=== PATIENT | female | born 1950 | race Caucasian/White ===

== ENCOUNTER → 2018-04-03 12:13 | Outpatient (CLI) | payer MEDICARE, OTHER, SELFPAY ==
--- NOTE | 2018-04-03 13:34 | PM.TREADMILL ---
Cardiac Stress Test Report Referral & Results Date Patient Seen: 04/03/18 Requesting provider: Danii Means Indication: Chest pain Rest ECG: Unremarkable Procedure Note: Today following both written and verbal informed consent, the patient was exercised according to a standard Charanjit protocol. The patient exercised for a total of 7 min 36 sec achieving a maximum heart rate of 150. Patient's maximum systolic blood pressure was 200. This was an estimated 10.1 MET's. There are no ST-T segment changes identified Occasional PAC and rare PVC including a ventricular couplet Functional aerobic impairment rates-15% on the active scale or 115% of normal Impression: No evidence of ischemia. Excellent exercise capacity Dysrhythmia as above Please note: Actual ECG tracings can be found in the PACS system.
== END ==
PROVIDERS: Family Provider Family Medicine Geriatric Medicine; PCP Family Medicine Geriatric Medicine; Visit Provider Physician Assistant
DX: R07.9 Chest pain, unspecified (principal)
CPT/HCPCS: 93016; 93017; 93018

== ENCOUNTER 2020-03-07 14:14 | Observation (INO) | payer MEDICARE, OTHER, SELFPAY ==
[2020-03-07] VITALS (10 sets, daily range): BP systolic 132–205; BP diastolic 63–93; PULSE 56–76; RESP 16–21; TEMP 35.9–37; O2SAT 95–98; BMI 25.1
--- NOTE | 2020-03-07 14:38 | DI.US.S_ITS ---
PROCEDURE: US ABDOMEN LIMITED INDICATIONS: EPIGASTRIC PAIN RADIATING TO BACK. ?GALLSTONES TECHNIQUE: Real-time focused scanning was performed of the abdomen, with image documentation. COMPARISON: None. FINDINGS: There are gallstones. A couple of nonmobile stones are seen in the gallbladder neck measuring approximately 1.4 cm. No gallbladder wall thickening or pericholecystic fluid. There is positive sonographic Palacios's sign. Visualized liver demonstrates normal size and echotexture. There is a 3.4 x 3.3 x 3.3 cm rim calcified hypoechoic mass in the liver. Common bile duct measures 4.2 mm in diameter. Pancreas is obscured by overlying bowel gas. IMPRESSION: 1. Cholelithiasis. There are a couple of nonmobile stones are seen lodged in the gallbladder neck. No gallbladder wall thickening or pericholecystic fluid collection. The sonographic Palacios sign is positive. If there is clinical concern for acute cholecystitis, HIDA scan may be obtained. 2. A 3.4 x 3.3 x 3.3 cm rim-calcified hypoechoic mass in liver, most likely a cyst. Follow-up ultrasound or CT may be considered if clinically indicated. Dictated by: Manuel Mccollum M.D. on 03/07/2020 at 15:56 Approved by: Manuel Mccollum M.D. on 03/07/2020 at 16:01
--- NOTE | 2020-03-07 14:51 | ED_ITS ---
HPI - Abdominal Pain <VELIA Yoon - Last Filed: 03/07/20 17:59> General Chief Complaint: Abdominal Pain Stated Complaint: severe abd and back pain/nausea/vomiting Time Seen by Provider: 03/07/20 14:28 Source: patient Mode of arrival: Ambulatory Limitations: no limitations History of Present Illness HPI narrative: This is a 69-year-old female, nonsmoker, who has past medical history significant for hypertension, hypothyroidism and gallstones presents to ED with chief complain of right-sided epigastric pain radiating to back started 2 days ago after she had reach at [place] previous day. She reports pain started as mild but became significantly worse after she had dinner last night eating pork. She vomited twice so far and had difficulty sleeping due to pain. Patient reports salt Dr. Polanco (GI specialist) at [place] and had a bedside US done in 2014 and was informed patient has gallstones. Patient denies chest pain, dyspnea, fever, chills or jaundice. Patient reports this is 1st time having this severe pain. Last bowel movements yesterday and had small sips of water at 8:30 a.m. today. PCP-Dr. Jade at [place]. Related Data Home Medications Medication Instructions Recorded Confirmed ALBUTEROL SULFATE (VENTOLIN #0 01/31/11 INHALER) LEVOTHYROXINE SODIUM 88 mcg PO DAILY #0 01/31/11 03/07/20 losartan 25 mg PO DAILY 03/07/20 03/07/20 Allergies Allergy/AdvReac Type Severity Reaction Status Date / Time Penicillins [PENICILLINS] Allergy Unknown Verified 03/08/20 11:49 Sulfa (Sulfonamide Allergy Unknown Verified 03/08/20 11:49 Antibiotics) [SULFA (SULFONAMIDE ANTIBIOTICS)] codeine [CODEINE] AdvReac Intermediate NAUSEA Verified 03/08/20 11:49 Review of Systems <VELIA Yoon - Last Filed: 03/07/20 17:59> Review of Systems Narrative: General: Denies fever, chills, fatigue, malaise, sweats. HEENT: Denies sinus pain, ear pain, sore throat, difficulty swallowing, dizziness. Respiratory: Denies dyspnea, cough, wheezing, hemoptysis, sputum. Cardiovascular: Denies chest pain, palpitations, orthopnea, edema. Gastrointestinal: See HPI : Denies dysuria, frequency, incontinence, hematuria, urinary retention. Musculoskeletal: Denies weakness, joint pain or bony pain. Skin: Denies rash, skin lesions, or other. Neurologic: Denies weakness, headache, numbness, change in speech, confusion, seizures, incoordination. Psychiatric: No concerning psychosocial issues. 12-point review of systems is negative except for those stated above. Patient History <[facility] D[facility] MccallumP - Last Filed: 03/07/20 17:59> Medical History (Updated 03/07/20 @ 20:38 by Jeaneth Fregoso MD) Gallstone Hypertension Hypothyroidism Social History household members: spouse Smoking Status: Never smoker Smoking Status: Never smoker alcohol intake frequency: holidays/special occasions only Substance Use Type: marijuana Exam <[facility] DOLORES MccallumP - Last Filed: 03/07/20 17:59> Narrative Exam Narrative: GEN: Alert, oriented x 3, well appearing and nourished, and in moderate distress from discomfort and holding epigastric region. Head: Normal cephalic, atraumatic. No scalp or temporal tenderness, palpable mass or rash. EYES: Pupils are equal, round, and reactive to light and accommodation. Extraoc ular muscles are intact bilaterally. There is no subconjunctival hemorrhage, exudate and sclera non-icteric. ENT: Hearing grossly intact. Airway patent. Neck: Trachea in midline. No JVD, non-tender without lymphadenopathy. No masses or thyroid megaly. Supple, non-tender and no meningeal signs. CARDIAC: Normal regular rate and rhythm without murmurs, gallops, or rubs. No chest wall tenderness. No peripheral edema, cyanosis or pallor. Capillary refill is less than 2 seconds. RESPIRATORY: Lungs are clear to auscultate bilaterally. No cough, wheezes, rales, or rhonchi. No stridor, respiratory distress, increase work of breathing, or accessary muscle used. ABD: Abdomen soft, nondistended. Epigastric region tender to palpate. No guarding or rebound tenderness to palpate. Bowel sounds are normal in all 4 quadrants. EXT: Full painless ROM of all extremities with no loss of sensation, strength, effusion or edema. SKIN: Warm, dry, normal color for patient. No erythema, lesions or rash over visible areas. BACK: Nontender without deformity or crepitance. No flank tenderness. NEUROLOGICAL: Alert and oriented to place, time and person. Sensation and motor function intact bilaterally. No facial droops, dysphasia. PSYCHIATRIC: Good judgement and reason, without hallucinations, abnormal affect or abnormal behaviors during the examination. Patient is not suicidal. Initial Vital Signs Initial Vital Signs: Vital Signs Temperature 98.0 F 03/07/20 14:26 Pulse Rate 72 03/07/20 14:26 Respiratory Rate 16 03/07/20 14:26 Blood Pressure 205/93 H 03/07/20 14:26 Pulse Oximetry 98 03/07/20 14:26 <Lela Reid DO - Last Filed: 03/09/20 23:06> Initial Vital Signs Initial Vital Signs: Vital Signs Temperature 98.0 F 03/07/20 14:26 Pulse Rate 72 03/07/20 14:26 Respiratory Rate 16 03/07/20 14:26 Blood Pressure 205/93 H 03/07/20 14:26 Pulse Oximetry 98 03/07/20 14:26 Scores <VELIA Yoon - Last Filed: 03/07/20 17:59> GCS Paradise coma scale eye opening: Spontaneous Paradise coma scale verbal response: Orientated Paradise coma scale motor response: Obey commands Paradise coma scale total score: 15 Course <VELIA Yoon - Last Filed: 03/07/20 17:59> Orders Ordered: Discontinued Medications Acetaminophen (Acetaminophen 325 Mg Tablet) 650 mg PO Q6HR PRN PRN Reason: Fever/Mild Pain (1-3) Last Admin: 03/08/20 12:50 Dose: 650 mg Documented by: LOLA Albuterol (Albuterol 1.25 Mg/3 Ml Neb (Pediatric)) 1.25 mg INH RTQ4HR PRN PRN Reason: Shortness Of Breath Or Wheezing Docusate Sodium (Docusate 100 Mg Capsule) 100 mg PO BID PRN PRN Reason: Constipation Fentanyl (Fentanyl 100 Mcg/2 Ml Inj) 0 mcg IV Q5MIN PRN PRN Reason: Pain, Severe (7-10) Haloperidol (Haloperidol 5 Mg/Ml Vial) 1 mg IV Q15MIN PRN PRN Reason: Nausea Hydromorphone HCl (Hydromorphone 0.5 Mg Inj) 0.5 mg IV NOW ONE Stop: 03/07/20 14:47 Last Admin: 03/07/20 14:59 Dose: 0.5 mg Documented by: GHADATONYessica Hydromorphone HCl (Hydromorphone 0.5 Mg Inj) 0.5 mg IV Q4HR PRN PRN Reason: Pain, Moderate (4-6) Last Admin: 03/08/20 08:03 Dose: 0.5 mg Documented by: MEHDI Hydromorphone HCl (Hydromorphone 2 Mg Inj) 0 mg IV Q5MIN PRN PRN Reason: Pain, Mild (1-3) Sodium Chloride (Normal Saline 0.9%) 1,000 mls @ 150 mls/hr IV CONT GIN Last Infusion: 03/07/20 20:50 Dose: 150 mls/hr Documented by: Admin: 03/07/20 15:03 Dose: 150 mls/hr Documented by: JOSHUA Lactated Ringer's (Lactated Ringers) 1,000 mls @ 100 mls/hr IV CONT GIN Last Admin: 03/08/20 06:06 Dose: 100 mls/hr Documented by: Infusion: 03/08/20 05:08 Dose: 100 mls/hr Documented by: Admin: 03/07/20 19:08 Dose: 100 mls/hr Documented by: ALBERTO Ciprofloxacin (Cipro) 400 mg in 200 mls @ 200 mls/hr IV Q12H GIN Last Admin: 03/08/20 08:29 Dose: 200 mls/hr Documented by: Infusion: 03/07/20 22:28 Dose: 200 mls/hr Documented by: Admin: 03/07/20 20:56 Dose: 200 mls/hr Documented by: ALBERTO Lactated Ringer's (Lactated Ringers) 1,000 mls @ 42 mls/hr IV CONT GIN Last Admin: 03/08/20 12:50 Dose: 42 mls/hr Documented by: LOLA Metronidazole (Flagyl) 500 mg in 100 mls @ 100 mls/hr IV NOW ONE Stop: 03/08/20 13:45 Lactated Ringer's (Lactated Ringers) 1,000 mls @ 120 mls/hr IV CONT GIN Last Admin: 03/08/20 14:10 Dose: 120 mls/hr Documented by: Infusion: 03/08/20 14:10 Dose: 120 mls/hr Documented by: Admin: 03/08/20 13:00 Dose: 120 mls/hr Documented by: AGUSTIN Levothyroxine Sodium (Levothyroxine 88 Mcg Tablet) 88 mcg PO 0600 [facility] Last Admin: 03/08/20 05:14 Dose: 88 mcg Documented by: RICHAR Losartan Potassium (Losartan 25 Mg Tablet) 25 mg PO DAILY [facility] Last Admin: 03/08/20 07:48 Dose: 25 mg Documented by: MEHDI Ondansetron HCl (Ondansetron 4 Mg/2 Ml Inj) 4 mg IV NOW ONE Stop: 03/07/20 14:38 Last Admin: 03/07/20 14:57 Dose: 4 mg Documented by: JOSHUA Ondansetron HCl (Ondansetron 4 Mg/2 Ml Inj) 4 mg IV NOW ONE Stop: 03/07/20 16:21 Last Admin: 03/07/20 17:06 Dose: 4 mg Documented by: FRAN Ondansetron HCl (Ondansetron 4 Mg/2 Ml Inj) 4 mg IV Q4HR PRN PRN Reason: Nausea And Vomiting Last Admin: 03/08/20 08:03 Dose: 4 mg Documented by: Admin: 03/08/20 02:52 Dose: 4 mg Documented by: Admin: 03/07/20 19:08 Dose: 4 mg Documented by: ALBERTO Ondansetron HCl (Ondansetron 4 Mg/2 Ml Inj) 4 mg IV NOW PRN PRN Reason: Nausea And Vomiting Oxycodone HCl (Oxycodone Ir 5 Mg Tablet) 5 mg PO PACUNOW PRN PRN Reason: Mild or moderate pain Pantoprazole Sodium (Pantoprazole 40 Mg Vial) 40 mg IV NOW ONE Stop: 03/07/20 14:38 Last Admin: 03/07/20 15:01 Dose: 40 mg Documented by: JOSHUA Pantoprazole Sodium (Pantoprazole 40 Mg Vial) 40 mg IV DAILY [facility] Last Admin: 03/08/20 07:49 Dose: 40 mg Documented by: MEHDI Prochlorperazine (Prochlorperazine 10 Mg/2 Ml Vial) 5 mg IV Q6HR PRN PRN Reason: Nausea Last Admin: 03/08/20 10:08 Dose: 5 mg Documented by: Admin: 03/07/20 21:18 Dose: 5 mg Documented by: ALBERTO Scopolamine (Scopolamine 1 Patch) 1 patch TOP NOW ONE Stop: 03/08/20 12:39 Last Admin: 03/08/20 12:49 Dose: 1 patch Documented by: LOLA Sodium Chloride (Sodium Chloride 0.9% Flush) 10 ml IV PRN PRN PRN Reason: Flush Sodium Chloride (Sodium Chloride 0.9% Flush) 10 ml IV BID GIN Last Admin: 03/08/20 08:29 Dose: Not Given Documented by: OLGA Reevaluation(s) Reevaluation #1: Patient reports nausea and pain improved after the medications. Slightly low in sodium of 130 and chloride of 95. Patient reports she always have slightly low in sodium level in the past. Otherwise unremarkable blood tests. Waiting for ultrasound test results. Time: 15:24 Reevaluation #2: Patient request additional dose of anti nausea. Patient repo rts decreased pain but still has tenderness to palpate in right upper quadrant and epigastric region. Informed patient of ultrasound test results a gallstone of 1.4 cm in gallbladder neck. Time: 16:22 Consultations Consultation #1: Dr. Fregoso paged to consult-cholelithiasis. The patient confirmed that would like immediate surgical intervention for cholelithiasis when given options as pain management and follow-up outpatiently at the clinic. Dr. Fregoso kindly accepted the pateint's care. Time: 16:41 Consultation #2: Dr. Fregoso came into ED to assess the patient at the bedside Time: 17:00 Vital Signs Vital signs: Vital Signs - 8 hr 03/07/20 14:26 03/07/20 15:41 03/07/20 15:42 Temperature 98.0 F Pulse Rate 72 58 L 58 L Respiratory Rate 16 Blood Pressure 205/93 H 137/64 Pulse Oximetry 98 96 03/07/20 15:50 03/07/20 16:00 03/07/20 16:26 Temperature Pulse Rate 56 L 61 62 Respiratory Rate 21 Blood Pressure 137/64 151/65 H Pulse Oximetry 96 95 98 03/07/20 16:30 03/07/20 17:00 Temperature Pulse Rate 60 67 Respiratory Rate Blood Pressure 143/66 H 145/66 H Pulse Oximetry 96 98 <Lela Reid DO - Last Filed: 03/09/20 23:06> Orders Ordered: Discontinued Medications Acetaminophen (Acetaminophen 325 Mg Tablet) 650 mg PO Q6HR PRN PRN Reason: Fever/Mild Pain (1-3) Last Admin: 03/08/20 12:50 Dose: 650 mg Documented by: LOLA Albuterol (Albuterol 1.25 Mg/3 Ml Neb (Pediatric)) 1.25 mg INH RTQ4HR PRN PRN Reason: Shortness Of Breath Or Wheezing Docusate Sodium (Docusate 100 Mg Capsule) 100 mg PO BID PRN PRN Reason: Constipation Fentanyl (Fentanyl 100 Mcg/2 Ml Inj) 0 mcg IV Q5MIN PRN PRN Reason: Pain, Severe (7-10) Haloperidol (Haloperidol 5 Mg/Ml Vial) 1 mg IV Q15MIN PRN PRN Reason: Nausea Hydromorphone HCl (Hydromorphone 0.5 Mg Inj) 0.5 mg IV NOW ONE Stop: 03/07/20 14:47 Last Admin: 03/07/20 14:59 Dose: 0.5 mg Documented by: RSTONE Hydromorphone HCl (Hydromorphone 0.5 Mg Inj) 0.5 mg IV Q4HR PRN PRN Reason: Pain, Moderate (4-6) Last Admin: 03/08/20 08:03 Dose: 0.5 mg Documented by: CPETRIC Hydromorphone HCl (Hydromorphone 2 Mg Inj) 0 mg IV Q5MIN PRN PRN Reason: Pain, Mild (1-3) Sodium Chloride (Normal Saline 0.9%) 1,000 mls @ 150 mls/hr IV CONT GIN Last Infusion: 03/07/20 20:50 Dose: 150 mls/hr Documented by: Admin: 03/07/20 15:03 Dose: 150 mls/hr Documented by: RSTONE Lactated Ringer's (Lactated Ringers) 1,000 mls @ 100 mls/hr IV CONT GIN Last Admin: 03/08/20 06:06 Dose: 100 mls/hr Documented by: Infusion: 03/08/20 05:08 Dose: 100 mls/hr Documented by: Admin: 03/07/20 19:08 Dose: 100 mls/hr Documented by: ALBERTO Ciprofloxacin (Cipro) 400 mg in 200 mls @ 200 mls/hr IV Q12H [facility] Last Admin: 03/08/20 08:29 Dose: 200 mls/hr Documented by: Infusion: 03/07/20 22:28 Dose: 200 mls/hr Documented by: Admin: 03/07/20 20:56 Dose: 200 mls/hr Documented by: ALBERTO Lactated Ringer's (Lactated Ringers) 1,000 mls @ 42 mls/hr IV CONT [facility] Last Admin: 03/08/20 12:50 Dose: 42 mls/hr Documented by: LOLA Metronidazole (Flagyl) 500 mg in 100 mls @ 100 mls/hr IV NOW ONE Stop: 03/08/20 13:45 Lactated Ringer's (Lactated Ringers) 1,000 mls @ 120 mls/hr IV CONT [facility] Last Admin: 03/08/20 14:10 Dose: 120 mls/hr Documented by: Infusion: 03/08/20 14:10 Dose: 120 mls/hr Documented by: Admin: 03/08/20 13:00 Dose: 120 mls/hr Documented by: AGUSTIN Levothyroxine Sodium (Levothyroxine 88 Mcg Tablet) 88 mcg PO 0600 [facility] Last Admin: 03/08/20 05:14 Dose: 88 mcg Documented by: RICHAR Losartan Potassium (Losartan 25 Mg Tablet) 25 mg PO DAILY [facility] Last Admin: 03/08/20 07:48 Dose: 25 mg Documented by: MEHDI Ondansetron HCl (Ondansetron 4 Mg/2 Ml Inj) 4 mg IV NOW ONE Stop: 03/07/20 14:38 Last Admin: 03/07/20 14:57 Dose: 4 mg Documented by: JOSHUA Ondansetron HCl (Ondansetron 4 Mg/2 Ml Inj) 4 mg IV NOW ONE Stop: 03/07/20 16:21 Last Admin: 03/07/20 17:06 Dose: 4 mg Documented by: FRAN Ondansetron HCl (Ondansetron 4 Mg/2 Ml Inj) 4 mg IV Q4HR PRN PRN Reason: Nausea And Vomiting Last Admin: 03/08/20 08:03 Dose: 4 mg Documented by: Admin: 03/08/20 02:52 Dose: 4 mg Documented by: Admin: 03/07/20 19:08 Dose: 4 mg Documented by: ALBERTO Ondansetron HCl (Ondansetron 4 Mg/2 Ml Inj) 4 mg IV NOW PRN PRN Reason: Nausea And Vomiting Oxycodone HCl (Oxycodone Ir 5 Mg Tablet) 5 mg PO PACUNOW PRN PRN Reason: Mild or moderate pain Pantoprazole Sodium (Pantoprazole 40 Mg Vial) 40 mg IV NOW ONE Stop: 03/07/20 14:38 Last Admin: 03/07/20 15:01 Dose: 40 mg Documented by: JOSHUA Pantoprazole Sodium (Pantoprazole 40 Mg Vial) 40 mg IV DAILY [facility] Last Admin: 03/08/20 07:49 Dose: 40 mg Documented by: MEHDI Prochlorperazine (Prochlorperazine 10 Mg/2 Ml Vial) 5 mg IV Q6HR PRN PRN Reason: Nausea Last Admin: 03/08/20 10:08 Dose: 5 mg Documented by: Admin: 03/07/20 21:18 Dose: 5 mg Documented by: ALBERTO Scopolamine (Scopolamine 1 Patch) 1 patch TOP NOW ONE Stop: 03/08/20 12:39 Last Admin: 03/08/20 12:49 Dose: 1 patch Documented by: LOLA Sodium Chloride (Sodium Chloride 0.9% Flush) 10 ml IV PRN PRN PRN Reason: Flush Sodium Chloride (Sodium Chloride 0.9% Flush) 10 ml IV BID [facility] Last Admin: 03/08/20 08:29 Dose: Not Given Documented by: OLGA Vital Signs Vital signs: Vital Signs - 8 hr 03/07/20 14:26 03/07/20 15:41 03/07/20 15:42 Temperature 98.0 F Pulse Rate 72 58 L 58 L Respiratory Rate 16 Blood Pressure 205/93 H 137/64 Pulse Oximetry 98 96 03/07/20 15:50 03/07/20 16:00 03/07/20 16:26 Temperature Pulse Rate 56 L 61 62 Respiratory Rate 21 Blood Pressure 137/64 151/65 H Pulse Oximetry 96 95 98 03/07/20 16:30 03/07/20 17:00 Temperature Pulse Rate 60 67 Respiratory Rate Blood Pressure 143/66 H 145/66 H Pulse Oximetry 96 98 MDM - Abdominal Pain <[facility] - Last Filed: 03/07/20 17:59> Differential Diagnosis Differential diagnosis: Likely abdominal pain and other (Cholecystitis, cholelithiasis, pancreas) Medical Records Attestation: I reviewed the patient's medical records. Lab Data Attestation: I reviewed the patient's lab results. Result diagrams: 03/08/20 13:48 03/08/20 05:00 Labs: Lab Results 03/07/20 03/07/20 03/07/20 Range/Units 14:46 14:46 14:46 WBC 10.2 (4.5-11.0) X10^3/uL RBC 4.18 (4.0-5.2) X10^6/uL Hgb 13.3 (12.0-16.0) g/dL Hct 38.5 (36-46) % MCV 92.2 (80-100) fL MCH 31.7 (26-34) PG MCHC 34.4 (30-36) % RDW 12.8 (11.6-14.8) % Plt Count 303 (150-400) X10^3/uL Neut % (Auto) 72.2 (50-75) % Lymph % (Auto) 18.4 L (25-40) % Tillman % (Auto) 8.7 (3-14) % Eos % (Auto) 0.3 L (2-4) % Baso % (Auto) 0.4 (0-2) % Neut # (Auto) 7400 H (9716-6581) /uL Lymph # (Auto) 1900 (8201-5840) /uL Tillman # (Auto) 900 (0-900) /uL Eos # (Auto) 0 (0-450) /uL Baso # (Auto) 0 (0-100) /uL PT 11.5 (10.1-12.7) SECONDS INR 1.0 (0.9-1.3) APTT 28 (26.4-36.2) SECONDS Sodium 130 L (137-145) mmol/L Potassium 3.6 (3.4-5.1) mmol/L Chloride 95 L (98-107) mmol/L Carbon Dioxide 29 (22-32) mmol/L BUN 8 (7-17) mg/dL Creatinine 0.41 L (0.52-1.04) mg/dL Estimated GFR > 60.0 (>60) mL/min BUN/Creatinine Ratio 19.5 (6-22) Glucose 106 (80-110) mg/dL Calcium 10.0 (8.4-10.2) mg/dL Total Bilirubin 1.2 (0.2-1.3) mg/dL AST 29 (14-36) IU/L ALT 22 (<35) IU/L Alkaline Phosphatase 98 (38-126) U/L Total Creatine Kinase (30-135) U/L CK-MB (CK-2) CK-MB (CK-2) Rel Index Troponin I (0.01-0.034) ng/mL Total Protein 7.7 (6.3-8.2) g/dL Albumin 4.5 (3.5-5.0) g/dL Globulin 3.2 (1.7-4.1) g/dL Albumin/Globulin Ratio 1.4 (1.0-2.8) Lipase 46 (23-300) U/L COVID-19 PCR (Negative) 03/07/20 03/07/20 Range/Units 14:46 17:00 WBC (4.5-11.0) X10^3/uL RBC (4.0-5.2) X10^6/uL Hgb (12.0-16.0) g/dL Hct (36-46) % MCV (80-100) fL MCH (26-34) PG MCHC (30-36) % RDW (11.6-14.8) % Plt Count (150-400) X10^3/uL Neut % (Auto) (50-75) % Lymph % (Auto) (25-40) % Tillman % (Auto) (3-14) % Eos % (Auto) (2-4) % Baso % (Auto) (0-2) % Neut # (Auto) (4622-1508) /uL Lymph # (Auto) (6091-4668) /uL Tillman # (Auto) (0-900) /uL Eos # (Auto) (0-450) /uL Baso # (Auto) (0-100) /uL PT (10.1-12.7) SECONDS INR (0.9-1.3) APTT (26.4-36.2) SECONDS Sodium (137-145) mmol/L Potassium (3.4-5.1) mmol/L Chloride (98-107) mmol/L Carbon Dioxide (22-32) mmol/L BUN (7-17) mg/dL Creatinine (0.52-1.04) mg/dL Estimated GFR (>60) mL/min BUN/Creatinine Ratio (6-22) Glucose (80-110) mg/dL Calcium (8.4-10.2) mg/dL Total Bilirubin (0.2-1.3) mg/dL AST (14-36) IU/L ALT (<35) IU/L Alkaline Phosphatase (38-126) U/L Total Creatine Kinase 52 (30-135) U/L CK-MB (CK-2) TNP CK-MB (CK-2) Rel Index TNP Troponin I < 0.012 (0.01-0.034) ng/mL Total Protein (6.3-8.2) g/dL Albumin (3.5-5.0) g/dL Globulin (1.7-4.1) g/dL Albumin/Globulin Ratio (1.0-2.8) Lipase (23-300) U/L COVID-19 PCR Negative (Negative) Imaging Data US - abdomen: Radiologist's Impression: [address] [id number] ReportSigned Patient: Unique Carreon JMR#: [id number]: [id number]:[id number]/Sex: 69 / FDate of Service: 03/07/20Loc: EDAccession Number: [id number] Procedure: US abdomen limited Ordering Provider: [facility] Mccallum PROCEDURE: US ABDOMEN LIMITED INDICATIONS: EPIGASTRIC PAIN RADIATING TO BACK. ?GALLSTONES TECHNIQUE: Real-time focused scanning was performed of the abdomen, with image documentation. COMPARISON: None. FINDINGS: There are gallstones. A couple of nonmobile stones are seen in the gallbladder neck measuring approximately 1.4 cm. No gallbladder wall thickening or pericholecystic fluid. There is positive sonographic Palacios's sign. Visualized liver demonstrates normal size and echotexture. There is a 3.4 x 3.3 x 3.3 cm rim calcified hypoechoic mass in the liver. Common bile duct measures 4.2 mm in diameter. Pancreas is obscured by overlying bowel gas. IMPRESSION: 1. Cholelithiasis. There are a couple of nonmobile stones are seen lodged in the gallbladder neck. No gallbladder wall thickening or pericholecystic fluid collection. The sonographic Palacios sign is positive. If there is clinical concern for acute cholecystitis, HIDA scan may be obtained. 2. A 3.4 x 3.3 x 3.3 cm rim-calcified hypoechoic mass in liver, most likely a cyst. Follow-up ultrasound or CT may be considered if clinically indicated. Dictated by: Manuel Mccollum M.D. on 03/07/2020 at 15:56 Approved by: Manuel Mccollum M.D. on 03/07/2020 at 16:01 ECG Data Attestation: I personally reviewed and interpreted this ECG as follows: Prior ECG tracings: not available for review Interpretation: Sinus bradycardia rate at 57. Normal axis. NE interval 182, QRS duration 100, QT/QTC 468/[address] changes MDM Narrative Medical decision making narrative: This is a 69 year female presents to ED with epigastric and right upper quadrant pain radiating to back for last 2-3 days with nausea and vomiting since last night after eating rich food 3 days ago. Reports has known gallstone in the past but pain has not been this severe. CBC shows no leukocytosis with white count of 10.2. Stable H&H. Normal coag. Normal liver function test of AST of 29, ALT of 22, alk phosphatase 98. Normal lipase of 46. Chemistry test shows mild sodium level of 130 with chloride of 95. Patient reports her sodium levels always lower than normal. US of abdomen indicates a couple of nonmobile stones seen in the gallbladder neck measuring approximately 1.4 cm without wall thickening or pericholecystic fluid. There was positive sonographic Palacios's sign. Common bile duct measures 4.2 mm in diameter. There is a 3.4 x 3.3 x 3.3 cm rim calcified hypoechoic mass in the liver most likely a cyst and recommending ultrasound or CT if clinically indicated. EKG shows sinus bradycardia rate at [address] changes. Cardiac enzymes were negative. Patient was medicated with 1 L of normal saline bolus, Dilaudid 0.5 mg, and 2 doses of Zofran 4 mg for symptoms which moderately improved her symptoms. Dr. Obrien consulted and she kindly accepted the patient's care for surgical intervention as patient's request. Covid test is negative. <Lela Reid, DO - Last Filed: 03/09/20 23:06> Lab Data Labs: Lab Results 03/07/20 03/07/20 03/07/20 Range/Units 14:46 14:46 14:46 WBC 10.2 (4.5-11.0) X10^3/uL RBC 4.18 (4.0-5.2) X10^6/uL Hgb 13.3 (12.0-16.0) g/dL Hct 38.5 (36-46) % MCV 92.2 (80-100) fL MCH 31.7 (26-34) PG MCHC 34.4 (30-36) % RDW 12.8 (11.6-14.8) % Plt Count 303 (150-400) X10^3/uL Neut % (Auto) 72.2 (50-75) % Lymph % (Auto) 18.4 L (25-40) % Tillman % (Auto) 8.7 (3-14) % Eos % (Auto) 0.3 L (2-4) % Baso % (Auto) 0.4 (0-2) % Neut # (Auto) 7400 H (7968-3752) /uL Lymph # (Auto) 1900 (5954-5157) /uL Tillman # (Auto) 900 (0-900) /uL Eos # (Auto) 0 (0-450) /uL Baso # (Auto) 0 (0-100) /uL PT 11.5 (10.1-12.7) SECONDS INR 1.0 (0.9-1.3) APTT 28 (26.4-36.2) SECONDS Sodium 130 L (137-145) mmol/L Potassium 3.6 (3.4-5.1) mmol/L Chloride 95 L (98-107) mmol/L Carbon Dioxide 29 (22-32) mmol/L BUN 8 (7-17) mg/dL Creatinine 0.41 L (0.52-1.04) mg/dL Estimated GFR > 60.0 (>60) mL/min BUN/Creatinine Ratio 19.5 (6-22) Glucose 106 (80-110) mg/dL Calcium 10.0 (8.4-10.2) mg/dL Total Bilirubin 1.2 (0.2-1.3) mg/dL AST 29 (14-36) IU/L ALT 22 (<35) IU/L Alkaline Phosphatase 98 (38-126) U/L Total Creatine Kinase (30-135) U/L CK-MB (CK-2) CK-MB (CK-2) Rel Index Troponin I (0.01-0.034) ng/mL Total Protein 7.7 (6.3-8.2) g/dL Albumin 4.5 (3.5-5.0) g/dL Globulin 3.2 (1.7-4.1) g/dL Albumin/Globulin Ratio 1.4 (1.0-2.8) Lipase 46 (23-300) U/L COVID-19 PCR (Negative) 03/07/20 03/07/20 Range/Units 14:46 17:00 WBC (4.5-11.0) X10^3/uL RBC (4.0-5.2) X10^6/uL Hgb (12.0-16.0) g/dL Hct (36-46) % MCV (80-100) fL MCH (26-34) PG MCHC (30-36) % RDW (11.6-14.8) % Plt Count (150-400) X10^3/uL Neut % (Auto) (50-75) % Lymph % (Auto) (25-40) % Tillman % (Auto) (3-14) % Eos % (Auto) (2-4) % Baso % (Auto) (0-2) % Neut # (Auto) (5797-4549) /uL Lymph # (Auto) (0798-6144) /uL Tillman # (Auto) (0-900) /uL Eos # (Auto) (0-450) /uL Baso # (Auto) (0-100) /uL PT (10.1-12.7) SECONDS INR (0.9-1.3) APTT (26.4-36.2) SECONDS Sodium (137-145) mmol/L Potassium (3.4-5.1) mmol/L Chloride (98-107) mmol/L Carbon Dioxide (22-32) mmol/L BUN (7-17) mg/dL Creatinine (0.52-1.04) mg/dL Estimated GFR (>60) mL/min BUN/Creatinine Ratio (6-22) Glucose (80-110) mg/dL Calcium (8.4-10.2) mg/dL Total Bilirubin (0.2-1.3) mg/dL AST (14-36) IU/L ALT (<35) IU/L Alkaline Phosphatase (38-126) U/L Total Creatine Kinase 52 (30-135) U/L CK-MB (CK-2) TNP CK-MB (CK-2) Rel Index TNP Troponin I < 0.012 (0.01-0.034) ng/mL Total Protein (6.3-8.2) g/dL Albumin (3.5-5.0) g/dL Globulin (1.7-4.1) g/dL Albumin/Globulin Ratio (1.0-2.8) Lipase (23-300) U/L COVID-19 PCR Negative (Negative) Discharge Plan Departure Patient Disposition: Admitted as Observation Clinical Impression: Cholelithiasis Qualifiers: Cholelithiasis location: gallbladder Cholecystitis presence: without cholecystitis Biliary obstruction: without biliary obstruction Qualified Code(s): K80.20 - Calculus of gallbladder without cholecystitis without obstruction Admit Date/Time: 03/07/20 17:10 Admit Provider: Jeaneth Fregoso <Lela Reid DO - Last Filed: 03/09/20 23:06> Cosign ED Attending Cosignature Attestation: I was immediately available in the department for consultation. Documentation has been reviewed. I agree with assessment and plan.
[2020-03-07 14:52] LABS: Add Manual Diff / Slide Review NO; Basophils Absolute Auto 0 /uL (0-100); Basophils Percent Auto 0.4 % (0-2); Eosinophils Absolute Auto 0 /uL (0-450); Eosinophils Percent Auto 0.3 % (2-4); Hematocrit 38.5 % (36-46); Hemoglobin 13.3 g/dL (12.0-16.0); Lymphocytes Absolute Auto 1900 /uL (1100-4500); Lymphocytes Percent Auto 18.4 % (25-40); Mean Corpuscular HGB Conc 34.4 % (30-36); Mean Corpuscular Hemoglobin 31.7 PG (26-34); Mean Corpuscular Volume 92.2 fL (80-100); Monocytes Absolute Auto 900 /uL (0-900); Monocytes Percent Auto 8.7 % (3-14); Neutrophils Absolute Auto 7400 /uL (1500-7000); Neutrophils Percent Auto 72.2 % (50-75); Platelet Count 303 X10^3/uL (150-400); Red Blood Cell Count 4.18 X10^6/uL (4.0-5.2); Red Cell Distribution Width 12.8 % (11.6-14.8); White Blood Cell Count 10.2 X10^3/uL (4.5-11.0)
[2020-03-07] MEDS: ONDANSETRON 4 MG/2 ML INJ IV ×3 (14:57→19:08)
[2020-03-07] MEDS: HYDROMORPHONE 0.5 MG INJ IV (14:59)
[2020-03-07] MEDS: PANTOPRAZOLE 40 MG VIAL IV (15:01)
[2020-03-07 15:03] LABS: Prothrombin Time 11.5 SECONDS (10.1-12.7)
[2020-03-07] MEDS: SODIUM CHLORIDE 0.9% 1,000 ML 150 ML IV (15:03)
[2020-03-07 15:06] LABS: PTT Partial Thromboplastin Tim 28 SECONDS (26.4-36.2)
[2020-03-07 15:10] LABS: Alanine Aminotransferase 22 IU/L (<35); Albumin 4.5 g/dL (3.5-5.0); Albumin Globulin Ratio 1.4 (1.0-2.8); Alkaline Phosphatase 98 U/L (38-126); Aspartate Aminotransferase 29 IU/L (14-36); BUN Creatinine Ratio 19.5 (6-22); Bilirubin Total 1.2 mg/dL (0.2-1.3); Blood Urea Nitrogen 8 mg/dL (7-17); Carbon Dioxide 29 mmol/L (22-32); Chloride 95 mmol/L (98-107); Creatine Kinase 52 U/L (30-135); Estimated Glomerular Filt Rate > 60.0 mL/min (>60); Globulin 3.2 g/dL (1.7-4.1); Glucose 106 mg/dL (80-110); HEMOLYSIS < 15 (0-50); Lipase 46 U/L (23-300); Potassium 3.6 mmol/L (3.4-5.1); Sodium 130 mmol/L (137-145); Total Protein 7.7 g/dL (6.3-8.2)
[2020-03-07 15:21] LABS: Troponin I < 0.012 ng/mL (0.01-0.034)
[2020-03-07 17:53] LABS: COVID19 -Nasal RAPID Negative (Negative)
--- NOTE | 2020-03-07 18:01 | P.HP_ITS ---
History of Present Illness History of Present Illness Date Patient Seen: 03/07/20 Time Patient Seen: 16:30 Chief complaint: severe abd and back pain/nausea/vomiting Narrative: This is a 69 yo woman with history of hypothyroid, hypertension, and history of phannensteil for ectopic . She comes in with two days of RUQ pain and nausea. She first noticed the pain on Tuesday. It began as dull ache across her mid abdomen/periumbilical area. It became focal in the RUQ and radiates to the back. She vomited last night after eating dinner. She denies fevers/chills, jaundice, chest pain, dyspnea. She says she knew she had gall stones from an x-ray or US she had done in the past, but never had symptoms before this. RUQ US in the ER shows gall stones with obstruction of gall bladder outlet. No dilated ducts, wall thickening, or pericholecystic fluid. WBC is normal. LFT's are normal. ROS: General: Denies fever, chills, fatigue, malaise, sweats. HEENT: Denies sinus pain, ear pain, sore throat, difficulty swallowing, dizziness. Respiratory: Denies dyspnea, cough, wheezing, hemoptysis, sputum. Cardiovascular: Denies chest pain, palpitations, orthopnea, edema. Gastrointestinal: See HPI : Denies dysuria, frequency, incontinence, hematuria, urinary retention. Musculoskeletal: Denies weakness, joint pain or bone pain. Skin: Denies rash, skin lesions, or other. Neurologic: Denies weakness, headache, numbness, change in speech, confusion, s eizures, incoordination. Psychiatric: No concerning psychosocial issues. 12-point review of systems is negative except for those stated above. PE: GENERAL: Alert, comfortable. Appears stated age. Answers questions promptly and appropriately. Vital signs noted. HENT: Normocephalic, atraumatic. Hearing intact. Oral mucosa is pink and moist. EYES: Conjunctiva pink, sclera white, no periorbital swelling. CARDIOVASCULAR: Regular rate. No pedal edema. RESPIRATORY: Non-tachypneic, breathing comfortably on room air. GASTROINTESTINAL: Abdomen soft and non-distended; mild TTP in RUQ (pt reports sh e just had pain meds) GENITALURINARY: No flank tenderness. MUSCULOSKELETAL: Equal tone and mass bilaterally. SKIN: Warm, dry, soft, appropriate color for ethnicity. No other lesions, rashes, or wounds. NEURO: Alert and Oriented X 3. No gross sensory deficits, or cognitive issues. PSYCH: Appropriate mood and affect, normal intellect Patient History Medical History Gallstone Hypertension Hypothyroidism Family & Social History Safety & Behavioral: Feels Safe in Current Yes Environment Been Physically Hurt or No Threatened By a Person Tobacco & Substance use: Smoking Status Never smoker alcohol intake frequency holiday/special occasion Substance Use Type marijuana Meds Home Medications and Allergies Home Medications Medication Instructions Recorded Confirmed Type ALBUTEROL SULFATE (VENTOLIN #0 01/31/11 History INHALER) LEVOTHYROXINE SODIUM 88 mcg PO DAILY #0 01/31/11 03/07/20 History losartan 25 mg PO DAILY 03/07/20 03/07/20 History Allergies Allergy/AdvReac Type Severity Reaction Status Date / Time Penicillins [PENICILLINS] Allergy Unknown Unverified 03/07/20 14:27 Sulfa (Sulfonamide Allergy Unknown Unverified 03/07/20 14:27 Antibiotics) [SULFA (SULFONAMIDE ANTIBIOTICS)] codeine [CODEINE] AdvReac Intermediate NAUSEA Unverified 03/07/20 14:27 Exam Vital Signs (past 8 hours): - 03/07/20 14:26 03/07/20 15:41 03/07/20 15:42 Temperature 98.0 F Pulse Rate 72 58 L 58 L Respiratory Rate 16 Blood Pressure 205/93 H 137/64 Pulse Oximetry 98 96 03/07/20 15:50 03/07/20 16:00 03/07/20 16:26 Temperature Pulse Rate 56 L 61 62 Respiratory Rate 21 Blood Pressure 137/64 151/65 H Pulse Oximetry 96 95 98 03/07/20 16:30 03/07/20 17:00 Temperature Pulse Rate 60 67 Respiratory Rate Blood Pressure 143/66 H 145/66 H Pulse Oximetry 96 98 Oxygen Delivery Method Room Air Objective Imaging US - abdomen: Radiologist's impression: [address] [id number] ReportSigned Patient: Unique Carreon SYD#: [id number]: 1950cct:[id number]/Sex: 69 / FDate of Service: 03/07/20Loc: EDAccession Number: [id number] Procedure: US abdomen limited Ordering Provider: Mt Mccallum PROCEDURE: US ABDOMEN LIMITED INDICATIONS: EPIGASTRIC PAIN RADIATING TO BACK. ?GALLSTONES TECHNIQUE: Real-time focused scanning was performed of the abdomen, with image documentation. COMPARISON: None. FINDINGS: There are gallstones. A couple of nonmobile stones are seen in the gallbladder neck measuring approximately 1.4 cm. No gallbladder wall thickening or pericholecystic fluid. There is positive sonographic Palacios's sign. Visualized liver demonstrates normal size and echotexture. There is a 3.4 x 3.3 x 3.3 cm rim calcified hypoechoic mass in the liver. Common bile duct measures 4.2 mm in diameter. Pancreas is obscured by overlying bowel gas. IMPRESSION: 1. Cholelithiasis. There are a couple of nonmobile stones are seen lodged in the gallbladder neck. No gallbladder wall thickening or pericholecystic fluid collection. The sonographic Palacios sign is positive. If there is clinical concern for acute cholecystitis, HIDA scan may be obtained. 2. A 3.4 x 3.3 x 3.3 cm rim-calcified hypoechoic mass in liver, most likely a cyst. Follow-up ultrasound or CT may be considered if clinically indicated. Dictated by: Manuel Mccollum M.D. on 03/07/2020 at 15:56 Approved by: Manuel Mccollum M.D. on 03/07/2020 at 16:01 Labs Result Diagrams: 03/07/20 14:46 03/07/20 14:46 Labs: Laboratory Results - last 24 hr 03/07/20 03/07/20 03/07/20 14:46 14:46 14:46 WBC 10.2 RBC 4.18 Hgb 13.3 Hct 38.5 MCV 92.2 MCH 31.7 MCHC 34.4 RDW 12.8 Plt Count 303 Neut % (Auto) 72.2 Lymph % (Auto) 18.4 L [place] % (Auto) 8.7 Eos % (Auto) 0.3 L Baso % (Auto) 0.4 Neut # (Auto) 7400 H Lymph # (Auto) 1900 [place] # (Auto) 900 Eos # (Auto) 0 Baso # (Auto) 0 PT 11.5 INR 1.0 APTT 28 Sodium 130 L Potassium 3.6 Chloride 95 L Carbon Dioxide 29 BUN 8 Creatinine 0.41 L Estimated GFR > 60.0 BUN/Creatinine Ratio 19.5 Glucose 106 Calcium 10.0 Total Bilirubin 1.2 AST 29 ALT 22 Alkaline Phosphatase 98 Total Creatine Kinase CK-MB (CK-2) CK-MB (CK-2) Rel Index Troponin I Total Protein 7.7 Albumin 4.5 Globulin 3.2 Albumin/Globulin Ratio 1.4 Lipase 46 COVID-19 PCR 03/07/20 03/07/20 14:46 17:00 WBC RBC Hgb Hct MCV MCH MCHC RDW Plt Count Neut % (Auto) Lymph % (Auto) [place] % (Auto) Eos % (Auto) Baso % (Auto) Neut # (Auto) Lymph # (Auto) [place] # (Auto) Eos # (Auto) Baso # (Auto) PT INR APTT Sodium Potassium Chloride Carbon Dioxide BUN Creatinine Estimated GFR BUN/Creatinine Ratio Glucose Calcium Total Bilirubin AST ALT Alkaline Phosphatase Total Creatine Kinase 52 CK-MB (CK-2) TNP CK-MB (CK-2) Rel Index TNP Troponin I < 0.012 Total Protein Albumin Globulin Albumin/Globulin Ratio Lipase COVID-19 PCR Negative Assessment & Plan Assessment and plan (1) Cholelithiasis: Qualifiers: Biliary obstruction: without biliary obstruction Cholecystitis presence: without cholecystitis Cholelithiasis location: gallbladder Qualified Code(s): K80.20 - Calculus of gallbladder without cholecystitis without obstruction Status: Acute (2) RUQ pain: Status: Acute (3) Biliary colic: Status: Acute (4) Intractable nausea and vomiting: Status: Acute Assessment & Plan narrative: This is a 69 yo woman with persistent RUQ pain and intractable nausea/vomiting with a gall stone lodged in the gall bladder neck. I have explained to her that there are still cases going on in the OR at this time, and there is not an available OR. We will plan on fluid resuscitation, IV antibiotics, pain meds and anti emetics, and plan on taking her to the OR tomorrow for cholecystectomy. Plan: NPO, IV fluids Recheck labs in AM IV abx anti emetic pain med home meds hold heparin for now bc OR tomorrow COVID-19 COVID-19 status: Negative Result date/Date tested (Pos, Neg/Pending): 03/07/20 Time Spent With Patient Time with patient: 25 - 35 minutes Quality VTE Deep Vein Thrombosis/Pulmonary Embolism Present on Admission: No
[2020-03-07] MEDS: LACTATED RINGERS 1,000 ML 100 ML IV (19:08)
[2020-03-07] MEDS: CIPROFLOXACIN 400 MG/200 ML PIGGYBACK 200 MG IV (20:56)
[2020-03-07] MEDS: PROCHLORPERAZINE 10 MG/2 ML VIAL 5 MG IV (21:18)
[2020-03-08] MEDS: ONDANSETRON 4 MG/2 ML INJ IV ×2 (02:52→08:03)
[2020-03-08 05:11] LABS: Add Manual Diff / Slide Review NO; Basophils Absolute Auto 0 /uL (0-100); Basophils Percent Auto 0.5 % (0-2); Eosinophils Absolute Auto 0 /uL (0-450); Eosinophils Percent Auto 0.2 % (2-4); Hematocrit 31.5 % (36-46); Lymphocytes Absolute Auto 1400 /uL (1100-4500); Lymphocytes Percent Auto 12.8 % (25-40); Mean Corpuscular Hemoglobin 32.3 PG (26-34); Mean Corpuscular Volume 92.2 fL (80-100); Monocytes Absolute Auto 1000 /uL (0-900); Monocytes Percent Auto 9.5 % (3-14); Neutrophils Absolute Auto 8200 /uL (1500-7000); Platelet Count 277 X10^3/uL (150-400); Red Blood Cell Count 3.41 X10^6/uL (4.0-5.2); Red Cell Distribution Width 12.6 % (11.6-14.8); White Blood Cell Count 10.6 X10^3/uL (4.5-11.0)
[2020-03-08] MEDS: LEVOTHYROXINE 88 MCG TABLET PO (05:14)
[2020-03-08 05:43] LABS: Magnesium 1.8 mg/dL (1.6-2.3); Phosphorous 3.5 mg/dL (2.8-4.1)
[2020-03-08 05:44] LABS: Alanine Aminotransferase 16 IU/L (<35); Albumin 3.4 g/dL (3.5-5.0); Albumin Globulin Ratio 1.2 (1.0-2.8); Alkaline Phosphatase 69 U/L (38-126); Aspartate Aminotransferase 21 IU/L (14-36); BUN Creatinine Ratio 24.4 (6-22); Blood Urea Nitrogen 11 mg/dL (7-17); Calcium 9.2 mg/dL (8.4-10.2); Carbon Dioxide 30 mmol/L (22-32); Chloride 98 mmol/L (98-107); Estimated Glomerular Filt Rate > 60.0 mL/min (>60); Globulin 2.9 g/dL (1.7-4.1); Glucose 111 mg/dL (80-110); HEMOLYSIS < 15 (0-50); Potassium 3.6 mmol/L (3.4-5.1); Sodium 129 mmol/L (137-145); Total Protein 6.3 g/dL (6.3-8.2)
[2020-03-08 06:00] VITALS: BP 150/79; PULSE 76; RESP 16; TEMP 37.6; O2SAT 98
[2020-03-08] MEDS: LACTATED RINGERS 1,000 ML 100 ML IV (06:06)
[2020-03-08] MEDS: LOSARTAN 25 MG TABLET PO (07:48)
[2020-03-08] MEDS: PANTOPRAZOLE 40 MG VIAL IV (07:49)
[2020-03-08] MEDS: HYDROMORPHONE 0.5 MG INJ IV (08:03)
[2020-03-08] MEDS: CIPROFLOXACIN 400 MG/200 ML PIGGYBACK 200 MG IV (08:29)
[2020-03-08 08:30] VITALS: BP 151/76; PULSE 80; RESP 16; TEMP 36.9; O2SAT 96
[2020-03-08 09:01] VITALS: PULSE 80; O2SAT 96
[2020-03-08] MEDS: PROCHLORPERAZINE 10 MG/2 ML VIAL 5 MG IV (10:08)
--- NOTE | 2020-03-08 10:13 | CM.DANOTE ---
DCP: Case received, EMR reviewed and met with patient. , Eulogio, was at bedside. Introduced self and role. Was able to obtain information from patient regarding her baseline activity status prior to hospitalization. DCP assessment completed with information currently available. Patient is a 69 year old female who admitted yesterday afternoon to the care of the hospitalist/surgical team. PCP: Dr. Jade. Payer: confirmed: Medicare/[facility]. Patient came to the hospital via private vehicle secondary to having abdominal and back pain, as well as nausea and vomiting. Patient was diagnosed with choleithiais. She is to be having a lap dawson today. Met with patient in her room. She was laying in bed, alert and oriented. , Eulogio, was at bedside. Her and her reside on [place]. She is independent at baseline, and works at [employer]. P: DCP to continue to follow. Patient will be having surgery. She should be able to go home when she is medically stable, and surgery is completed. Gila Puentes RN/Dimensional Integration Engineer
[2020-03-08] MEDS: SCOPOLAMINE 1 PATCH TOP (12:49)
[2020-03-08] MEDS: ACETAMINOPHEN 325 MG TABLET 650 MG PO (12:50)
[2020-03-08] MEDS: LACTATED RINGERS 1,000 ML 42 ML IV (12:50)
[2020-03-08] MEDS: LACTATED RINGERS 1,000 ML 120 ML IV ×2 (13:00→14:10)
--- NOTE | 2020-03-08 13:21 | SUR.OPER ---
Supine on padded OR bed, head on pillow, safety belt at thigh, left arm padded and tucked at side. Right arm secured on padded arm oard <90 degrees abduction. Legs uncrossed. Padded footboard in place. Tape over blanket to secure lower legs.
[2020-03-08 13:57] LABS: Add Manual Diff / Slide Review NO; Basophils Absolute Auto 0 /uL (0-100); Basophils Percent Auto 0.5 % (0-2); Eosinophils Absolute Auto 0 /uL (0-450); Eosinophils Percent Auto 0.4 % (2-4); Hematocrit 23.6 % (36-46); Hemoglobin 8.5 g/dL (12.0-16.0); Lymphocytes Absolute Auto 1100 /uL (1100-4500); Lymphocytes Percent Auto 14.6 % (25-40); Mean Corpuscular Hemoglobin 33.3 PG (26-34); Mean Corpuscular Volume 92.4 fL (80-100); Monocytes Absolute Auto 600 /uL (0-900); Neutrophils Absolute Auto 5700 /uL (1500-7000); Neutrophils Percent Auto 76.5 % (50-75); Platelet Count 197 X10^3/uL (150-400); Red Blood Cell Count 2.56 X10^6/uL (4.0-5.2); Red Cell Distribution Width 12.6 % (11.6-14.8); White Blood Cell Count 7.5 X10^3/uL (4.5-11.0)
--- NOTE | 2020-03-08 15:02 | PC.NURSE ---
Patient's updated at bedside by Dr. Fregoso and then Dr. Gao. Patient agreeable to patient's transport to [place] as arranged. Patient states he needs to go home tonight to take his own medications. Giving patient's her belongings.
--- NOTE | 2020-03-08 15:13 | P.OP_ITS ---
Operative Date/Time/Diagnoses Date of procedure: 03/08/20 Time of procedure: 15:13 Pre-op diagnosis: Acute cholecystitis Post-op diagnosis: other (Contained rupture of aortic aneurysm) Procedure & Clinicians Procedure: Exploratory laparotomy Same procedure as scheduled: No Indications: This is a 69-year-old woman presented with 2 days of right upper quadrant abdominal pain underwent a ultrasound which demonstrated gallstones launch within the neck of the gallbladder. She was taken to the operating room for possible laparoscopic cholecystectomy. Surgeon: Shan Gao Call Or Contact Centre Team Leader: Trever Washburn Anesthesia Type: General Operative Notes Findings: Hemoperitoneum, contained rupture of the abdominal aortic aneurysm Specimen(s): none sent Estimated Blood Loss (mL): 1,000 Procedure in detail: Patient was brought to the operating room placed supine on the table. Bilateral lower extremity compression devices were applied. General anesthesia was induced and she was intubated with an endotracheal tube. She received levofloxacin and Flagyl prior to skin incision. An infraumbilical incision was made the abdomen was entered atraumatically. Balloon trocar was then placed into the abdomen and pneumoperitoneum was established, the laparoscope was inserted into the abdomen. There was avinash hemoperitoneum. I placed an additional 5 mm port in the left lower quadrant as well as 1 in the epigastric area and a diagnostic laparoscopy was performed. I suction blood from the abdomen there was significant amount of blood in the left upper quadrant. I was unable to determine the source via the laparoscopy and therefore converted to an exploratory laparotomy. A generous midline incision was made and a self-retaining retractor was placed. I inspected the right upper quadrant which demonstrated mildly distended gallbladder as well as a hepatic mass in the right lobe of the liver. In the left upper quadrant the spleen appeared intact. I elevated the transverse colon and there was a very large retroperitoneal hematoma consistent with a contained ruptured aortic aneurysm. Approximately 1 L of blood was suctioned from the abdomen. Had my partner come to the operating room to assist. Pulled the stomach down and incised the pars flaccida and with gentle blunt dissection I was able to encircle the supra aortic aorta. Placed a Cynthia drain around the aorta to obtain proximal control. Careful inspection of the retroperitoneum demonstrated a contained hematoma in the retroperitoneum, there was a large amount of oozing but no pulsatile bleeding. We assessed the situation we have no aortic graft and as the patient was hemodynamically stable we arranged for immediate transfer to a tertiary facility with vascular capability. The abdomen was closed, I left the cynthia drain encirlced around the supra celiac aorta. Complications: none Post-operative Condition: critical Disposition: other (immediate transfer directly from OR )
--- NOTE | 2020-03-08 15:24 | PC.NURSE ---
patient transferred emergently directly from OR to [facility] via helicopter.
--- NOTE | 2020-03-08 15:27 | CM.DPC ---
DCP Cont: Checked in with patient's , Eulogio, who has been at bedside. He uses a cane, and stated that when he arrived, he took the stairs, for he could not read the floor numbers on the elevator. had just been given update regarding patient's condition. She had an aortic aneurysm, and is being flown to [place], emergent. Asked if he is able to drive, and stated that he can drive, he just needs someone to help him gather belongings. He is aware that he will not be able to visit his at [place], due to the strict COVID rules. Asked him if he had any other family that he can contact if he needs anything, and he mentioned that he does have some friends that he can contact. is hard of hearing, as well. P: Patient is to be flown to [place], due to condition. was updated on condition by both surgeons. Gila Puentes RN/Windmill Mechanic
--- NOTE | 2020-03-08 15:31 | P.DS_ITS ---
History of Present Illness History of Present Illness Date Patient Seen: 03/08/20 Time Patient Seen: 15:31 Chief complaint: severe abd and back pain/nausea/vomiting Narrative: This is 69 y.o woman who presented with RUQ pain and nausea x 2 days. A RUQ ultrasound demonstrated several gallstones lodged in the neck of the gallbladder. Discharge Providers Provider Date of admission: 03/07/20 17:10 Discharge Date: 03/08/20 Primary care physician: Hank Jade MD Discharge provider: Shan Gao MD Summary Hospital Course Discharge Diagnosis: ruptured aortic aneurysm acute blood loss anemia Hospital Course: Patient taken to the operating room for a laparoscopic cholecystectomy. She was found to have a contained rupture of an abdominal aortic aneurysm. She was hemodynamically stable intraoperatively and rather then explore the contained retroperitoneal hematoma she was transferred directly from the operating room to [facility] for immediate vascular surgery. She did not receive blood products. Exam Vital Signs (past 8 hours): - 03/08/20 08:30 03/08/20 09:01 Temperature 98.5 F Pulse Rate 80 80 Respiratory Rate 16 Blood Pressure 151/76 H Pulse Oximetry 96 96 Oxygen Delivery Method Room Air Oxygen Flow Rate 0 Narrative Exam Narrative: general-intubated chest-no audible wheezes abdomen-midline incision CDI ext-warm well perfused Objective Labs Result Diagrams: 03/08/20 13:48 03/08/20 05:00 Labs: Laboratory Results - last 24 hr 03/07/20 03/08/20 03/08/20 17:00 05:00 05:00 WBC 10.6 RBC 3.41 L Hgb 11.0 L Hct 31.5 L MCV 92.2 MCH 32.3 MCHC 35.0 RDW 12.6 Plt Count 277 Neut % (Auto) 77.0 H Lymph % (Auto) 12.8 L [place] % (Auto) 9.5 Eos % (Auto) 0.2 L Baso % (Auto) 0.5 Neut # (Auto) 8200 H Lymph # (Auto) 1400 [place] # (Auto) 1000 H Eos # (Auto) 0 Baso # (Auto) 0 Sodium Potassium Chloride Carbon Dioxide BUN Creatinine Estimated GFR BUN/Creatinine Ratio Glucose Calcium Phosphorus 3.5 Magnesium 1.8 Total Bilirubin AST ALT Alkaline Phosphatase Total Protein Albumin Globulin Albumin/Globulin Ratio COVID-19 PCR Negative Blood Type Antibody Screen Crossmatch 03/08/20 03/08/20 03/08/20 05:00 13:48 13:48 WBC 7.5 RBC 2.56 L Hgb 8.5 L Hct 23.6 L MCV 92.4 MCH 33.3 MCHC 36.0 RDW 12.6 Plt Count 197 Neut % (Auto) 76.5 H Lymph % (Auto) 14.6 L [place] % (Auto) 8.0 Eos % (Auto) 0.4 L Baso % (Auto) 0.5 Neut # (Auto) 5700 Lymph # (Auto) 1100 [place] # (Auto) 600 Eos # (Auto) 0 Baso # (Auto) 0 Sodium 129 L Potassium 3.6 Chloride 98 Carbon Dioxide 30 BUN 11 Creatinine 0.45 L Estimated GFR > 60.0 BUN/Creatinine Ratio 24.4 H Glucose 111 H Calcium 9.2 Phosphorus Magnesium Total Bilirubin 1.0 AST 21 ALT 16 Alkaline Phosphatase 69 Total Protein 6.3 Albumin 3.4 L Globulin 2.9 Albumin/Globulin Ratio 1.2 COVID-19 PCR Blood Type A Positive Antibody Screen Negative Crossmatch See Detail Discharge Plan Discharge Plan Patient Disposition: [facility] Other facility: [facility]. Discharge Data Primary Care Provider: Hank Jade Attending Provider: Jeaneth Fregoso VTE Deep Vein Thrombosis/Pulmonary Embolism Present on Admission: No
--- NOTE | 2020-03-08 16:00 | PC.NURSE ---
Patient went from OR to transfer by [facility]. aware of transfer and took all of this patients belongings with him, home.
--- NOTE | 2020-03-26 10:19 | PM.PROC.1 ---
Procedures Date/Time Date of procedure: 03/07/20 Time of procedure: 14:30 Arterial Line Time out performed: No Size (Gauge): 18 Technique used: guide wire technique (US guided) Post-Procedure: dry sterile dressing placed Patient tolerated procedure: Well and No complications Complications: none Site: right Additional comments: in to assist with presumed leaking aortic aneurysm, incidental finding upon initiation of laparoscopic cholecystectomy.
== END 2020-03-08 15:55 | disposition short-term general hospital (02) ==
LOC: ED 16:37 → AC 03-08 06:50
PROVIDERS: Anesthesiology; Emergency Medicine; Surgery; Admitting Provider Surgery; Emergency Provider Nurse Practitioner Family; Family Provider Family Medicine Geriatric Medicine; PCP Family Medicine; Referring Provider Nurse Practitioner Family; Visit Provider Surgery
PROC: 0FT44ZZ Resection of Gallbladder, Percutaneous Endoscopic Approach (ICD-10-PCS; CPT 47562; principal; 2020-03-08 11:15)
DX: I71.3 Abdominal aortic aneurysm, ruptured (principal); R10.11 Right upper quadrant pain; I10 Essential (primary) hypertension; E03.9 Hypothyroidism, unspecified; J45.909 Unspecified asthma, uncomplicated; K80.20 Calculus of gallbladder without cholecystitis without obstruction; D62 Acute posthemorrhagic anemia; Z11.59 Encounter for screening for other viral diseases
CPT/HCPCS: 49000; 36415; 36430; 76705; 80053; 82550; 83690; 83735; 84100; 84484; 85025; 85610; 85730; 86850; 86900; 86901; 87635; 93005; 94762; 96361; 96365; 96366; 96375; 96376; 99219; 99283; 99284; G0378; P9016; C9113; J0330; J0744; J0780; J1100; J1170; J2250; J2405; J2704; J3010

== ENCOUNTER → 2022-02-23 12:52 | Outpatient (CLI) | payer MEDICARE, OTHER, SELFPAY ==
[2020-03-07 19:33] VITALS: BMI 25.1
--- NOTE | 2022-02-23 | DI.MRI.S_ITS ---
PROCEDURE: MR ANKLE LT WO CON INDICATIONS: Pain in left foot TECHNIQUE: Noncontrast sagittal T1 spin echo and T2 fast spin echo with fat saturation, axial proton density fast spin echo and T2 fast spin echo with fat saturation, coronal T1 spin echo and T2 fast spin echo with fat saturation through the ankle/hindfoot. COMPARISON: None. FINDINGS: Image quality: Excellent. Bones and joints: Osteoarthritic changes are noted throughout midfoot and hindfoot joints with joint space narrowing and subchondral sclerosis. No bone marrow contusions or fractures. No hindfoot coalitions. No osteochondral injuries of the talar dome. Nonspecific subcortical cystic area involving posterior superior aspect of calcaneus is seen. No pathologic joint effusions. Small plantar calcaneal enthesophyte is seen. Medial structures: The posterior tibialis, flexor digitorum longus, and flexor hallucis longus tendons are mildly thickened. Small to moderate amount of fluid is seen distending flexor tendon sheath at the level of medial malleolus extending to the level of talonavicular joint. The posterior tibial neurovascular bundle appears normal within the tarsal tunnel, without extrinsic mass effect. Thickened deltoid ligament and spring ligament is seen suggestive of low-grade ligament sprain. Lateral structures: The anterior talofibular, calcaneofibular, and posterior talofibular ligaments appear mildly attenuated with intrasubstance T2 hyperintense signal. More superiorly, the anterior and posterior tibiofibular ligaments appear intact, as is the intermalleolar ligament. The tibiofibular syndesmosis is normal in width at 2 mm or less. The peroneus longus and brevis tendons demonstrate normal location and morphology. Adjacent bony peroneal tubercle and retrotrochlear prominence are normal in size. The sinus tarsi demonstrates normal fatty signal, without edema, fibrosis, or cyst formation. Visualized sinus tarsi components (cervical ligament, interosseous talocalcaneal ligament, roots of the inferior extensor retinaculum) appear normal. The calcaneonavicular and calcaneocuboid components of the bifurcate ligament appear intact. The dorsal calcaneocuboid ligament appears intact. Anterior structures: The tibialis anterior, extensor hallucis longus, and extensor digitorum longus tendons appear intact. The dorsal talonavicular ligament appears intact. Posterior and plantar structures: Achilles tendon is intact. Medial and lateral bands of the plantar fascia are of normal thickness. No abductor digiti quinti muscle atrophy to suggest Lovell neuropathy. IMPRESSION: 1. Fodt-wh-ctshgkob midfoot and hindfoot joint osteoarthritis. No fracture or dislocation. No osteochondral injury of talar dome. No significant joint effusion. Nonspecific subcortical cystic area involving posterior and superior aspect of calcaneus. No suspicious intraosseous lesion. Small plantar calcaneal enthesophyte. 2. Low-grade medial collateral ligament sprain. Low-grade sprain/intrasubstance partial-thickness tear involving anterior posterior talofibular ligaments and calcaneofibular ligament. 3. Tendinosis and low-grade tenosynovitis involving flexor tendons as above. Rest of the ankle tendons are intact. Dictated by: Abdulkadir Kwan M.D. on 02/23/2022 at 17:08 Approved by: Abdulkadir Kwan M.D. on 02/23/2022 at 17:12
== END ==
PROVIDERS: Family Provider Family Medicine Geriatric Medicine; PCP Family Medicine; Referring Provider Podiatrist; Visit Provider Podiatrist
DX: S93.412A Sprain of calcaneofibular ligament of left ankle, initial encounter (principal); S93.492A Sprain of other ligament of left ankle, initial encounter; M19.072 Primary osteoarthritis, left ankle and foot; M77.32 Calcaneal spur, left foot; M65.872 Other synovitis and tenosynovitis, left ankle and foot; M79.672 Pain in left foot
CPT/HCPCS: 73721

== ENCOUNTER → 2024-03-30 13:41 | Outpatient (CLI) | payer MEDICARE, OTHER, SELFPAY ==
[2020-03-07 19:33] VITALS: BMI 25.1
--- NOTE | 2024-03-30 13:45 | DI.MRI.S_ITS ---
PROCEDURE: MR LUMBAR SPINE WO CON INDICATIONS: LOW BACK PAIN TECHNIQUE: Noncontrast sagittal T1 spin echo and T2 fast echo, sagittal STIR, and T2 fast spin echo through the lumbar spine. In cases with scoliosis, additional coronal T2 fast spin echo may be performed. COMPARISON: [facility], CR, XR SCOLIOSIS STUDY, 03/20/2024, 10:21. [facility], CR, XR LUMBAR SPINE WITH OBLIQUES PLUS FLEXION EXTENSION, 02/23/2022, 10:45. FINDINGS: Image quality: Fair; please note that susceptibility artifact from pre-existing scoliosis hardware limits evaluation. Anatomy: There are 5 nonrib-bearing lumbar vertebrae. Bones: There is a subacute, minimally displaced L2 superior endplate compression fracture involving the anterior and middle columns (5/11; 3/11). There is an additional, minimally displaced L5 inferior endplate compression fracture involving the anterior middle columns (5/7; 3/8). There is no significant height loss or retropulsion. Overall, there is a biconcave appearance of the L1, L2, and L3 vertebral bodies, compatible with chronic compression fractures but without significant height loss. There may be an additional subacute T10 inferior endplate compression fracture as well (5/4; 4/4). Alignment: Levocurvature of the thoracolumbar junction with the apex at L1. Straightening of the lumbar spine on the sagittal sequences. Discs: Multilevel disc desiccation is present. There is loss of the disc heights space at L4-L5 level. Spinal cord: The conus medullaris ends at the level of T12-L1. No abnormal cord signal. Muscles: Severe paraspinal muscle atrophy and fatty replacement. Reduced bulk of the psoas major and quadratus lumborum musculature. Prevertebral: No prevertebral soft tissue edema. No abdominal aortic aneurysm. No abnormal prevertebral soft tissue mass in the [id number]. Multilevel findings: Mild disc bulges at L4-L5 and L5-S1. Multilevel mild-moderate facet arthropathy, most conspicuous at L5-S1. INDIVIDUAL LEVELS: T12-L1: No central canal stenosis. No foraminal stenosis. L1-L2: No central canal stenosis. No foraminal stenosis. L2-L3: No central canal stenosis. No foraminal stenosis. L3-L4: No central canal stenosis. No foraminal stenosis. L4-L5: No central canal stenosis. No foraminal stenosis. L5-S1: No central canal stenosis. Mild bilateral foraminal stenosis. IMPRESSION: 1. Subacute, minimally displaced L2 superior endplate and L5 inferior endplate compression fractures without significant height loss or retropulsion. While these may be secondary to underlying osteoporosis, consider correlation with serum lab markers for a monoclonal gammopathy such as multiple myeloma. 2. Additional, possible minimally displaced inferior endplate T10 compression fracture. 3. No severe central canal or foraminal stenosis. Dictated by: Skyler White M.D. on 04/02/2024 at 14:17 Approved by: Skyler White M.D. on 04/02/2024 at 14:35
== END ==
PROVIDERS: Family Provider Family Medicine Geriatric Medicine; PCP Family Medicine; Referring Provider Physician Assistant Surgical; Visit Provider Physician Assistant Surgical
DX: M51.17 Intervertebral disc disorders with radiculopathy, lumbosacral region (principal); M47.26 Other spondylosis with radiculopathy, lumbar region; M51.16 Intervertebral disc disorders with radiculopathy, lumbar region; M47.27 Other spondylosis with radiculopathy, lumbosacral region; M48.07 Spinal stenosis, lumbosacral region; M48.56XA Collapsed vertebra, not elsewhere classified, lumbar region, initial encounter for fracture; M54.50 Low back pain, unspecified; Z98.1 Arthrodesis status
CPT/HCPCS: 72148

== ENCOUNTER → 2024-04-06 16:28 | Outpatient (CLI) | payer MEDICARE, OTHER, SELFPAY ==
[2020-03-07 19:33] VITALS: BMI 25.1
--- NOTE | 2024-04-06 16:29 | DI.MRI.S_ITS ---
PROCEDURE: MR THORACIC SPINE WO CON INDICATIONS: history of lumbar fusion TECHNIQUE: Noncontrast sagittal T1 spine echo and T2 fast spin echo, sagittal STIR, and T2 fast spin echo through the thoracic spine. COMPARISON: [facility], CR, XR SCOLIOSIS STUDY, 03/20/2024, 10:21. [facility], MR, MR LUMBAR SPINE WO CON, 03/30/2024, 14:24. FINDINGS: Image quality: There is artifact associated with the metallic hardware. Alignment and Curvature: There is significant S shaped scoliosis. Bone Marrow: Marrow is of normal overall signal. At the T10 level, there is focal increased STIR signal inferiorly, as on series 6, image 11. No significant loss of height is seen. No abnormal STIR signal can be seen within the T12 vertebral body. Spinal Cord: Visualized spinal cord is normal in size and signal. Paraspinous Soft Tissues: No paravertebral masses. Miscellaneous: Extensive fixation rods can be seen, with associated artifact. No significant central canal narrowing is seen. Evaluation of the neural foramina is highly limited. IMPRESSION: Abnormal STIR signal can be seen within the inferior aspect of the T10 vertebral body. The appearance is nonspecific, although differential diagnosis includes a nondisplaced fracture versus contusion. Dictated by: Willian Mancini M.D. on 04/06/2024 at 17:24 Approved by: Willian Mancini M.D. on 04/06/2024 at 17:28
== END ==
LOC: MRI 16:29
PROVIDERS: Family Provider Family Medicine Geriatric Medicine; PCP Family Medicine; Referring Provider Physician Assistant Surgical; Visit Provider Physician Assistant Surgical
DX: M54.16 Radiculopathy, lumbar region (principal); M41.9 Scoliosis, unspecified; Z98.1 Arthrodesis status
CPT/HCPCS: 72146

== ENCOUNTER → 2024-04-21 11:24 | Outpatient (CLI) | payer MEDICARE, OTHER, SELFPAY ==
[2020-03-07 19:33] VITALS: BMI 25.1
--- NOTE | 2024-04-21 11:28 | DI.CT.S_ITS ---
PROCEDURE: CT THORACIC SPINE WO CON INDICATIONS: CLOSED WEDGE COMPRESSION FX OF T10 TECHNIQUE: Noncontrast 3 mm thick sections acquired through the region of interest in the thoracic spine. Sagittal and coronal reformats were then constructed. For radiation dose reduction, the following was used: automated exposure control. COMPARISON: [facility], MR, MR THORACIC SPINE WO CON, 04/06/2024, 17:25. FINDINGS: Image quality: Excellent. Bones: Significant S shaped thoracolumbar scoliotic curvature with fixation by multiple rods. STIR signal abnormality seen on the recent prior MRI corresponds to a very subtle subacute inferior endplate compression of T10. Soft tissues: No paravertebral masses or hematomas. Visualized posteromedial lungs appear clear. IMPRESSION: The STIR signal abnormality seen on MRI on the recent previous study does correspond to a very subtle subacute inferior endplate compression fracture of T10. Dictated by: Celestino Perera M.D. on 04/22/2024 at 9:22 Approved by: Celestino Perera M.D. on 04/22/2024 at 9:25
[2024-04-24 11:40] LABS: M-Spike % Not Observed % (Not Observed); Protein, Total, 24 hr urine 115 mg/24 hr (30-150); Total Urine Protein 6.4 mg/dL (Not Estab.)
== END ==
PROVIDERS: Family Provider Family Medicine Geriatric Medicine; PCP Family Medicine; Referring Provider Orthopaedic Surgery; Visit Provider Orthopaedic Surgery
DX: S22.070A Wedge compression fracture of T9-T10 vertebra, initial encounter for closed fracture (principal); M89.9 Disorder of bone, unspecified
CPT/HCPCS: 72128; 84156; 84166

== ENCOUNTER → 2024-05-30 09:07 | Outpatient (CLI) | payer MEDICARE, OTHER, SELFPAY ==
[2020-03-07 19:33] VITALS: BMI 25.1
[2024-05-30 10:34] LABS: Vitamin D 25 Hydroxy (D3) 27.8 ng/mL (30.0-100.0)
== END ==
PROVIDERS: Family Provider Family Medicine Geriatric Medicine; PCP Family Medicine; Referring Provider Family Medicine; Visit Provider Family Medicine
DX: M89.9 Disorder of bone, unspecified (principal)
CPT/HCPCS: 36415; 82306